=== PATIENT | female | born 1965 | race Caucasian/White ===

== ENCOUNTER 2018-09-06 12:34 | Emergency (ER) | payer MEDICAID ==
[~2018-09-06] VITALS: Ht 167.6 cm; Wt 72.7 kg
[~2018-09-06 12:34] MED LIST: 00186-0372-20 IH; AMBIEN 10MG10 MG PO; ASPIRIN 32325 MG/TAB PO; ATROVENT INHALE14 GM IH; BENTYL 20MG20 MG/TAB PO; CARAFATE 1GM1 G PO; CATAPRES-TTS 10.1 M1 PO; FIORICET 325 MG1 TA1 PO; IBU600 MG PO; LASIX 40MG TABL40 MG PO; LIORESAL 1010 MG/TAB PO; PRAVACHOL 40MG40 MG PO; PREDNISONE20 MG PO; ROXICODONE 55 MG/TAB PO; RT SPIRIVA18 MCG IH; ULTRAM 50MG TAB50 MG PO; VALIUM 5MG T5 MG/TAB PO; VENTOLIN0.09 MG IH; ZANTAC 300300 MG PO; ZESTRIL 20MG TA20 MG PO; ZITHROMAX 250M250 MG PO
[2018-09-06 12:46] VITALS: TEMP 98.1
[2018-09-06] MEDS ORDERED: BREO ELLIPTA 21 EACH IH ×2 (13:02→16:18)
[2018-09-06] MEDS ORDERED: COUMADIN 77.5 MG/TAB PO (13:05)
[2018-09-06 13:41] LABS: BASO # 0.1 (0.0-0.2); BASO % 0.9 % (0.0-2.0); EOS # 0.3 (0.0-0.7); EOS % 3.6 % (0-4.0); GRAN # 3.5 (1.4-6.5); GRAN % 44.5 % (42.2-75.2); HEMATOCRIT 48.1 % (37.0-47.0); LYMPH # 3.4 (1.2-3.4); LYMPH % 43.3 % (20.0-51.0); MEAN CELL VOLUME 87 fl (80.0-100.0); MEAN CORPUSCULAR HEMOGLOBIN 29 pg (27.0-31.0); MEAN CORPUSCULAR HGB CONC 33 g/dl (33.0-37.0); MEAN PLATELET VOLUME 9.3 fl (7.4-10.4); MONO # 0.6 (0.1-0.6); MONO % 7.6 % (1.7-9.3); PLATELET COUNT 252 K/mm3 (130-400); RED BLOOD COUNT 5.55 M/mm3 (4.10-5.30); REDCELL DISTRIBUTION WIDTH-CV 14.8 % (11.5-14.5)
[2018-09-06 13:50] LABS: ALANINE AMINOTRANSFERASE 14 U/L (9-52); ALBUMIN 4.4 gm/dL (3.5-5.0); ALKALINE PHOSPHATASE 89 U/L (50-136); ANION GAP 9 mmol/L (7-16); AST,SGOT 23 U/L (15-37); BILIRUBIN,TOTAL 0.8 mg/dL (0.0-1.0); BLOOD UREA NITROGEN 13 mg/dL (7-17); CALCIUM 9.5 mg/dL (8.4-10.2); CARBON DIOXIDE 25 mmol/L (22-30); CHLORIDE 107 mmol/L (98-107); CREATININE, serum 0.55 (0.52-1.25); GLUCOSE 95 mg/dL (74-106); LIPASE 190 U/L (23-300); POTASSIUM 4.3 mmol/L (3.4-5.0); SODIUM 142 mmol/L (137-145); TOTAL PROTEIN 8.1 gm/dL (6.4-8.2)
[2018-09-06 13:51] LABS: C-REACTIVE PROTEIN < 0.5 mg/dL (0.0-0.9)
[2018-09-06 14:18] LABS: COLLECTION METHOD CLEAN CATCH
[2018-09-06 14:39] LABS: PH 6 (5-8); SQUAMOUS EPITHELIAL None Seen /hpf; URINE APPEARANCE Clear; URINE BACTERIA None Seen /hpf; URINE BILIRUBIN Negative (NEGATIVE); URINE BLOOD Negative (NEGATIVE); URINE COLOR Yellow; URINE GLUCOSE Negative (NEGATIVE); URINE KETONE Negative (NEGATIVE); URINE LEUKOCYTE ESTERASE Negative (NEGATIVE); URINE NITRATE Negative (NEGATIVE); URINE PROTEIN(semi-quant) Negative (NEGATIVE); URINE RBC 0-2 /hpf; URINE UROBILINOGEN Negative (NEGATIVE)
[2018-09-06] MEDS ORDERED: ULTRAM 50MG TAB50 MG PO (16:16)
[2018-09-06] MEDS ORDERED: VENTOLIN0.09 MG IH (16:18)
[2018-09-06] MEDS ORDERED: RT SPIRIVA18 MCG IH (16:18)
[2018-09-06] MEDS ORDERED: PRINIVIL20 MG PO (16:18)
[2018-09-06 16:30] VITALS: BP 160/117; PULSE 83
== END 2018-09-06 16:32 | disposition home or self-care (01) ==
LOC: COL.ER 12:34
PROVIDERS: Emergency Medicine
DX: R10.11 Right upper quadrant pain (principal); I10 Essential (primary) hypertension; J44.9 Chronic obstructive pulmonary disease, unspecified; F17.210 Nicotine dependence, cigarettes, uncomplicated; Z95.2 Presence of prosthetic heart valve; Z90.49 Acquired absence of other specified parts of digestive tract; Z79.82 Long term (current) use of aspirin; Z79.01 Long term (current) use of anticoagulants; Z98.890 Other specified postprocedural states
CPT/HCPCS: C9113; J2405; Q9967

== ENCOUNTER → 2018-10-08 | Outpatient (CLI) | payer MEDICAID ==
[~2018-10-08] MED LIST changes: +BREO ELLIPTA 21 EACH IH; +COUMADIN 77.5 MG/TAB PO; +PRINIVIL20 MG PO
== END ==
LOC: COL.RAD 13:36
DX: M48.02 Spinal stenosis, cervical region (principal); M51.36 Other intervertebral disc degeneration, lumbar region; M48.07 Spinal stenosis, lumbosacral region

== ENCOUNTER → 2018-11-02 | Outpatient (CLI) | payer MEDICAID ==
[~2018-11-02] MED LIST changes: +CATAPRES 0.1MG0.1 MG PO; +CATAPRES0.2 MG PO; +COUMADIN 1010 MG/TAB PO; +DOXYCYCLINE 10100 MG PO
[2018-11-02 13:39] LABS: BASO # 0.1 (0.0-0.2); BASO % 0.8 % (0.0-2.0); EOS # 0.3 (0.0-0.7); EOS % 3.2 % (0-4.0); GRAN # 5.3 (1.4-6.5); GRAN % 50.9 % (42.2-75.2); LYMPH # 4.1 (1.2-3.4); LYMPH % 39.5 % (20.0-51.0); MEAN CELL VOLUME 87 fl (80.0-100.0); MEAN CORPUSCULAR HGB CONC 33 g/dl (33.0-37.0); MEAN PLATELET VOLUME 9.1 fl (7.4-10.4); MONO # 0.6 (0.1-0.6); MONO % 5.3 % (1.7-9.3); PLATELET COUNT 237 K/mm3 (130-400); RED BLOOD COUNT 6.27 M/mm3 (4.10-5.30); REDCELL DISTRIBUTION WIDTH-CV 14.1 % (11.5-14.5)
[2018-11-02 13:41] LABS: HEMATOCRIT 54.8 % (37.0-47.0); HEMOGLOBIN 18.2 g/dl (12.5-16.0); MEAN CORPUSCULAR HEMOGLOBIN 29 pg (27.0-31.0)
[2018-11-02 13:50] LABS: ALANINE AMINOTRANSFERASE 15 U/L (9-52); ALKALINE PHOSPHATASE 95 U/L (50-136); ANION GAP 12 mmol/L (7-16); AST,SGOT 29 U/L (15-37); BLOOD UREA NITROGEN 13 mg/dL (7-17); C-REACTIVE PROTEIN < 0.5 mg/dL (0.0-0.9); CALCIUM 10.1 mg/dL (8.4-10.2); CARBON DIOXIDE 26 mmol/L (22-30); CHLORIDE 103 mmol/L (98-107); CREATININE, serum 0.77 (0.52-1.25); GLUCOSE 95 mg/dL (74-106); POTASSIUM 4.6 mmol/L (3.4-5.0); SODIUM 140 mmol/L (137-145); TOTAL PROTEIN 8.8 gm/dL (6.4-8.2)
[2018-11-02 14:15] LABS: ERYTHROCYTE SEDIMENTATION RATE 1 mm/hr (0-30)
[2018-11-02 14:36] LABS: HIV 1/2 Antibodies Non-Reactive; HIV-1p24 Antigen Non-Reactive
[2018-11-03 01:49] LABS: HEPATITIS B SURFACE ANTIGEN Negative (Negative)
[2018-11-03 06:19] LABS: HEPATITIS C VIRUS ANTIBODY Reactive (Negative)
[2018-11-05 10:48] LABS: LIVER FIBROSIS APOLIPOPROTEIN 159 mg/dL (>=140)
== END ==
LOC: COL.LAB 12:42
PROVIDERS: Internal Medicine Infectious Disease
DX: B19.20 Unspecified viral hepatitis C without hepatic coma (principal)
CPT/HCPCS: 87522

== ENCOUNTER → 2019-03-30 | Outpatient (CLI) | payer MEDICAID | LOC: MHCPAIN 08:21 | DX: M47.817 Spondylosis without myelopathy or radiculopathy, lumbosacral region (principal); M53.3 Sacrococcygeal disorders, not elsewhere classified | CPT/HCPCS: G0463 ==

== ENCOUNTER 2019-10-29 20:41 | Emergency (ER) | payer MEDICAID ==
[~2019-10-29] VITALS: Ht 175.3 cm; Wt 75.0 kg
[2019-10-29] MEDS ORDERED: OXAYDO7.5 MG PO (21:40)
[2019-10-29 21:47] LABS: BASO # 0.1 (0.0-0.2); BASO % 0.5 % (0.0-2.0); EOS # 0.1 (0.0-0.7); EOS % 0.4 % (0-4.0); GRAN # 12.4 (1.4-6.5); GRAN % 75.1 % (42.2-75.2); HEMATOCRIT 43.9 % (37.0-47.0); HEMOGLOBIN 14.9 g/dl (12.5-16.0); LYMPH # 2.7 (1.2-3.4); LYMPH % 16.1 % (20.0-51.0); MEAN CELL VOLUME 84 fl (80.0-100.0); MEAN CORPUSCULAR HEMOGLOBIN 29 pg (27.0-31.0); MEAN CORPUSCULAR HGB CONC 34 g/dl (33.0-37.0); MEAN PLATELET VOLUME 8.7 fl (7.4-10.4); MONO # 1.2 (0.1-0.6); MONO % 7.4 % (1.7-9.3); PLATELET COUNT 244 K/mm3 (130-400); REDCELL DISTRIBUTION WIDTH-CV 13.8 % (11.5-14.5)
[2019-10-29 21:56] LABS: COLLECTION METHOD CLEAN CATCH
[2019-10-29 22:00] LABS: ALANINE AMINOTRANSFERASE 19 U/L (4-34); ALBUMIN 4.4 gm/dL (3.5-5.0); ALKALINE PHOSPHATASE 87 U/L (50-136); ANION GAP 8 mmol/L (7-16); AST,SGOT 27 U/L (15-37); BILIRUBIN,TOTAL 1.3 mg/dL (0.0-1.0); BLOOD UREA NITROGEN 9 mg/dL (7-17); CALCIUM 9.2 mg/dL (8.4-10.2); CARBON DIOXIDE 24 mmol/L (22-30); CHLORIDE 100 mmol/L (98-107); CREATININE, serum 0.71 (0.52-1.25); GLUCOSE 133 mg/dL (74-106); POTASSIUM 4.1 mmol/L (3.4-5.0); SODIUM 133 mmol/L (137-145); TOTAL PROTEIN 8.1 gm/dL (6.4-8.2)
[2019-10-29 22:09] LABS: STREP SCREEN NEGATIVE
[2019-10-29 22:11] LABS: PH 5 (5-8); SQUAMOUS EPITHELIAL 0-2 /hpf; URINE APPEARANCE Hazy; URINE BACTERIA Rare /hpf; URINE BILIRUBIN Negative (NEGATIVE); URINE BLOOD 1+ (NEGATIVE); URINE COLOR Yellow; URINE GLUCOSE Negative (NEGATIVE); URINE KETONE Trace (NEGATIVE); URINE LEUKOCYTE ESTERASE 1+ (NEGATIVE); URINE NITRATE Negative (NEGATIVE); URINE PROTEIN(semi-quant) Negative (NEGATIVE); URINE UROBILINOGEN Negative (NEGATIVE)
[2019-10-29] MEDS ORDERED: CATAPRES0.2 MG PO (22:14)
[2019-10-29 22:35] LABS: PROTHROMBIN TIME 60.5 SECONDS (9.7-12.8)
[2019-10-29 22:36] LABS: INR 5.3 (0.8-3.0)
[2019-10-29 22:55] LABS: TROPONIN-I < 0.012 ng/mL (0.000-0.035)
[2019-10-29] MEDS ORDERED: AMOXICILLIN 8751 TAB PO (23:44)
[2019-10-30 01:30] VITALS: BP 130/70; PULSE 66; TEMP 98
== END 2019-10-30 00:15 | disposition home or self-care (01) ==
LOC: COL.ER 20:41
PROVIDERS: Emergency Medicine
DX: J06.9 Acute upper respiratory infection, unspecified (principal); N39.0 Urinary tract infection, site not specified; R11.2 Nausea with vomiting, unspecified; I48.91 Unspecified atrial fibrillation; I25.10 Atherosclerotic heart disease of native coronary artery without angina pectoris; I50.9 Heart failure, unspecified; Z95.1 Presence of aortocoronary bypass graft; Z95.4 Presence of other heart-valve replacement; Z79.01 Long term (current) use of anticoagulants; Z87.891 Personal history of nicotine dependence; Z20.828 Contact with and (suspected) exposure to other viral communicable diseases
CPT/HCPCS: J0696; J1885; Q9967

== ENCOUNTER 2019-11-03 19:25 | Inpatient (IN) | payer MEDICAID ==
[~2019-11-03] VITALS: Ht 167.6 cm; Wt 81.5 kg
[~2019-11-03 19:25] MED LIST changes: +AMOXICILLIN 8751 TAB PO; +OXAYDO7.5 MG PO
[2019-11-03 20:33] LABS: BASO # 0.1 (0.0-0.2); BASO % 0.6 % (0.0-2.0); EOS # 0.2 (0.0-0.7); EOS % 1.8 % (0-4.0); GRAN % 65.6 % (42.2-75.2); HEMATOCRIT 43.4 % (37.0-47.0); HEMOGLOBIN 14.2 g/dl (12.5-16.0); LYMPH # 3.1 (1.2-3.4); LYMPH % 25.3 % (20.0-51.0); MEAN CELL VOLUME 85 fl (80.0-100.0); MEAN CORPUSCULAR HEMOGLOBIN 28 pg (27.0-31.0); MEAN CORPUSCULAR HGB CONC 33 g/dl (33.0-37.0); MEAN PLATELET VOLUME 8.5 fl (7.4-10.4); MONO # 0.8 (0.1-0.6); MONO % 6.2 % (1.7-9.3); PLATELET COUNT 326 K/mm3 (130-400); RED BLOOD COUNT 5.12 M/mm3 (4.10-5.30)
[2019-11-03 20:49] LABS: ALANINE AMINOTRANSFERASE 16 U/L (4-34); ALBUMIN 4.3 gm/dL (3.5-5.0); ALKALINE PHOSPHATASE 79 U/L (50-136); ANION GAP 10 mmol/L (7-16); AST,SGOT 34 U/L (15-37); BILIRUBIN,TOTAL 0.8 mg/dL (0.0-1.0); BLOOD UREA NITROGEN 14 mg/dL (7-17); CALCIUM 9.5 mg/dL (8.4-10.2); CARBON DIOXIDE 22 mmol/L (22-30); CHLORIDE 103 mmol/L (98-107); CREATINE KINASE 116 U/L (30-135); CREATININE, serum 0.64 (0.52-1.25); GLUCOSE 101 mg/dL (74-106); POTASSIUM 4.6 mmol/L (3.4-5.0); SODIUM 135 mmol/L (137-145); TOTAL PROTEIN 8.1 gm/dL (6.4-8.2)
[2019-11-03 20:59] LABS: TROPONIN-I < 0.012 ng/mL (0.000-0.035)
[2019-11-03 21:14] LABS: INR 1.1 (0.8-3.0); PROTHROMBIN TIME 12.2 SECONDS (9.7-12.8)
[2019-11-03] MEDS ORDERED: ZANAFLEX CAPSULE4 MG PO (23:10)
[2019-11-03] MEDS ORDERED: NORVASC 10MG10 MG PO (23:10)
[2019-11-03] MEDS ORDERED: DESYREL DIVIDO150 M1 PO (23:11)
[2019-11-03] MEDS ORDERED: RT SPIRIVA18 MCG IH (23:11)
[2019-11-03] MEDS ORDERED: CYMBALTA 60MG60 MG PO (23:12)
[2019-11-03] MEDS ORDERED: BREO ELLIPTA 21 EACH IH (23:13)
[2019-11-03] MEDS ORDERED: LIORESAL 1010 MG/TAB PO (23:15)
[2019-11-03] MEDS ORDERED: ROXICODONE 55 MG/TAB PO (23:17)
[2019-11-03] MEDS ORDERED: TOPROL XL 50MG50 MG PO (23:19)
[2019-11-03] MEDS ORDERED: PROAIR HFA0.09 MG/AC IH (23:19)
[2019-11-03] MEDS ORDERED: PEPCID 20MG TAB20 MG PO (23:19)
[2019-11-04] VITALS (7 sets, daily range): BP systolic 95–144; BP diastolic 48–82; PULSE 53–73; TEMP 97.7–98.7
--- NOTE | 2019-11-04 00:48 | NUR ---
Vancomycin Initial Dosing Pharmacy Note Ordering provider: Heber Dobbins MD Indication/duration: HAP/VAP - MRSA risk w/ 7 day duration Relevant comorbidities: LABS: WBC = 12.2, SCr = 0.64 Recommendation: Will order lab and follow results. Loading dose: 1.5 grams Maintenance dose: 1 gram every 8 hours Trough goal: 15-20 ug/mL
--- NOTE | 2019-11-04 03:00 | NUR ---
Patient arrived to medical until from ER at approximately 0200. Alert and oriented x 4, and able to make needs known. INT to right hand flushed. Site is without redness, warmth, swelling, and pain. Reports level 9 pain to back/hips/legs, described as sharp, and chronic. Given scheduled pain medication per orders. Reports SOB with exertion only. LS coarse throughout. Respirations even and unlabored. On room air. Occasional cough, unable to observe any sputum at this time. Patient reports she has been having bloody sputum. supervisor shipping room aware. HRR. Telemetry in place: normal sinus. Capillary refill less than 3 seconds. Non-tenting skin turgor. BSAx4. Abdomen soft and non-tender. No edema. Voices no questions, needs, or concerns at this time. IV antibiotics per orders. Rresting in bed with call light within reach.
--- NOTE | 2019-11-04 05:14 | NUR ---
Patient has been resting in bed. Has denied having any questions, needs, or concerns at this time. Call light is within reach.
[2019-11-04 07:16] LABS: BASO # 0.1 (0.0-0.2); BASO % 0.5 % (0.0-2.0); EOS # 0.2 (0.0-0.7); EOS % 2.2 % (0-4.0); GRAN # 4.9 (1.4-6.5); GRAN % 51.3 % (42.2-75.2); HEMATOCRIT 39.6 % (37.0-47.0); HEMOGLOBIN 13.3 g/dl (12.5-16.0); LYMPH # 3.5 (1.2-3.4); LYMPH % 36.8 % (20.0-51.0); MEAN CELL VOLUME 86 fl (80.0-100.0); MEAN CORPUSCULAR HEMOGLOBIN 29 pg (27.0-31.0); MEAN CORPUSCULAR HGB CONC 34 g/dl (33.0-37.0); MEAN PLATELET VOLUME 8.6 fl (7.4-10.4); MONO # 0.8 (0.1-0.6); MONO % 8.7 % (1.7-9.3); PLATELET COUNT 362 K/mm3 (130-400); RED BLOOD COUNT 4.63 M/mm3 (4.10-5.30); REDCELL DISTRIBUTION WIDTH-CV 14.2 % (11.5-14.5)
--- NOTE | 2019-11-04 07:17 | NUR ---
TX REFUSED AT THIS TIME
[2019-11-04 07:40] LABS: ALBUMIN 3.5 gm/dL (3.5-5.0); BILIRUBIN,TOTAL 0.6 mg/dL (0.0-1.0); CALCIUM 8.9 mg/dL (8.4-10.2); CREATININE, serum 0.68 (0.52-1.25); POTASSIUM 3.6 mmol/L (3.4-5.0); TOTAL PROTEIN 6.7 gm/dL (6.4-8.2)
--- NOTE | 2019-11-04 09:09 | NUR ---
Pt sleeping upon entry, easily awakened, no C/O pain at this time. Shift assessments complete, left Pt call light in reach, bed in lowest position.
--- NOTE | 2019-11-04 18:14 | NUR ---
Pt resting in the room today, has had some C/O pain and medications were given for relief, no other issues / complaints noted. Pt in good spirits and talkative. Vs have remained stable.
--- NOTE | 2019-11-04 20:00 | NUR ---
Assessment complete at this time. Patient complains of pain 7/10 all over her body; scheduled Roxycodone administered. Antibiotics currently running into a right hand IV. No new concerns, will continue to monitor.
[2019-11-05 03:31] VITALS: BP 116/62; PULSE 67; TEMP 98.4
--- NOTE | 2019-11-05 03:56 | NUR ---
Patient complains of pain below her ribs on her right side at this time; 10/23. Additional 7.5 mg of Roxicodone is ordered and administered. Will continue to monitor.
[2019-11-05 07:16] VITALS: BP 137/76; PULSE 65; TEMP 98.1
--- NOTE | 2019-11-05 09:15 | NUR ---
Pt awake and alert this morning, C/O pain 5/10, medications given for relief. [facility] assessments complete, left Pt call light in reach, bed in lowest position.
--- NOTE | 2019-11-05 10:50 | NUR ---
SW met with patient to complete intake. Patient states that she lives in [place] with her daughter Shelley Carbone [phone]. Patient states that she utilizes a cane every now and then. Patient states that she is independent with ADL's. Patient provides that her PCP is Dr. Leslye Kerns, she obtains her medications from [facility] and that she is able to afford her medications at this time. Patient states that she would like to appoint her daughter Shelley Carbone as her DPOA-HC. Document reviewed, filled out by JOSHUA and signed by patient with nurse Leblanc being the witness of the signature. Patient states that she is unsure when she will discharge to her home, but she has not concerns at this time in regards to her discharge and does not feel she will need any services upon discharge. SW will continue to follow.
[2019-11-05 11:20] VITALS: BP 128/77; PULSE 59; TEMP 98.1
[2019-11-05] MEDS ORDERED: PREDNISONE20 MG PO (12:41)
[2019-11-05] MEDS ORDERED: OMNICEF 300MG300 MG PO (12:41)
--- NOTE | 2019-11-05 13:30 | NUR ---
Pt discharged to home, discussed discharge packet with Pt, escorted Pt to entrance, Pt left with friend via private auto.
== END 2019-11-05 13:30 | disposition home or self-care (01) | DRG 194 ==
LOC: COL.ER 19:25 → MEDICAL 22:36
PROVIDERS: Emergency Medicine; Nurse Practitioner Family; ADMIT Internal Medicine
DX: J18.9 Pneumonia, unspecified organism (principal); R04.2 Hemoptysis; I11.0 Hypertensive heart disease with heart failure; I50.9 Heart failure, unspecified; E78.5 Hyperlipidemia, unspecified; I25.10 Atherosclerotic heart disease of native coronary artery without angina pectoris; I71.2 Thoracic aortic aneurysm, without rupture; I48.0 Paroxysmal atrial fibrillation; M48.00 Spinal stenosis, site unspecified; R91.8 Other nonspecific abnormal finding of lung field; J43.9 Emphysema, unspecified; I34.1 Nonrheumatic mitral (valve) prolapse; Z95.1 Presence of aortocoronary bypass graft; Z95.3 Presence of xenogenic heart valve; Z86.73 Personal history of transient ischemic attack (TIA), and cerebral infarction without residual deficits; Z79.01 Long term (current) use of anticoagulants; Z88.6 Allergy status to analgesic agent; Z87.891 Personal history of nicotine dependence
CPT/HCPCS: 99223-AI; 99232-AI; 99239; C9113; J1885; J2543; J3370; J7050; J7512; Q9967

== ENCOUNTER → 2019-12-14 | Outpatient (CLI) | payer MEDICAID ==
[~2019-12-14] MED LIST changes: +CYMBALTA 60MG60 MG PO; +DESYREL DIVIDO150 M1 PO; +NORVASC 10MG10 MG PO; +OMNICEF 300MG300 MG PO; +PEPCID 20MG TAB20 MG PO; +PROAIR HFA0.09 MG/AC IH; +TOPROL XL 50MG50 MG PO; +ZANAFLEX CAPSULE4 MG PO
== END ==
LOC: COL.VAS 12-13 13:15
DX: R06.02 Shortness of breath (principal); Z95.2 Presence of prosthetic heart valve

== ENCOUNTER → 2019-12-28 | Outpatient (CLI) | payer MEDICAID ==
[~2019-12-28] VITALS: Ht 167.6 cm; Wt 76.0 kg
[~2019-12-28] MED LIST changes: +CRESTOR; +CRESTOR5 MG PO
[2019-12-28 09:28] VITALS: BP 153/80; PULSE 79
--- NOTE | 2019-12-28 10:40 | NUR ---
Pt procedure canceled by Dr Hawkins after repeat scan and talking with Dr Matt Smyth Pt changed into clothes. Int removed. 2x2 and coban to site, catheter tip intact. Pt given muffin and coffee to eat. Pt awaiting daughter to pick her up.
--- NOTE | 2019-12-28 10:44 | NUR ---
pt out to car per ambulation. Denies complaints at this time.
== END ==
LOC: COL.RAD 09:09
DX: J98.11 Atelectasis (principal); I28.8 Other diseases of pulmonary vessels; J47.9 Bronchiectasis, uncomplicated; R91.8 Other nonspecific abnormal finding of lung field

== ENCOUNTER → 2020-04-30 | Outpatient (CLI) | payer MEDICAID | LOC: COL.RAD 09:35 | DX: J43.9 Emphysema, unspecified (principal); Z98.890 Other specified postprocedural states; Z95.2 Presence of prosthetic heart valve ==

== ENCOUNTER 2021-01-24 15:30 | Inpatient (IN) | payer MEDICAID ==
[~2021-01-24] VITALS: Ht 167.6 cm; Wt 76.0 kg
[2021-01-24] VITALS (32 sets, daily range): BP systolic 94–127; BP diastolic 60–75; PULSE 58–66; TEMP 98–98.5; O2SAT 80–99
--- NOTE | 2021-01-24 15:57 | NUR ---
PT ADMITTED FROM [facility] FOR POSSIBLE NSTEMI. PT IS AXOX4. PT'S VSS. PT ORIENTED TO ROOM AND FLOOR. PT DENIES CP. BEDSIDE AND BEDSIDE. WILL CONTINUE TO [facility].
[2021-01-24] MEDS ORDERED: PRILOSEC 20MG20 MG PO (16:21)
[2021-01-24] MEDS ORDERED: ATARAX50 MG PO (16:25)
--- NOTE | 2021-01-24 17:06 | NUR ---
REPORT GIVEN TO KAMILAH CHAPIN ALL QUESTIONS ANSWERED. PT WHEELED UP TO ROOM 352 BY ESTEFANI CHUNG. KAMILAH CHAPIN NOTIFIED THAT LAB UNABLE TO DRAW. WILL SEND SOMEONE ELSE IN ABOUT 30MINS.
--- NOTE | 2021-01-24 19:02 | NUR ---
Pt. transferred to room 352. Pt. oriented to room, pt. verbalized understanding of call light use. 5L NC in use, O2 sat WNL. Evening medications administered per MAY. Moisture Conditioner Operator and charge nurse were unable to get pt.'s labs. Pt. also reporting 7/10 pain to her left arm. MITUL Mcdowell notified on the telephone regarding pt.'s pain and labs unable to be obtained. MITUL Mcdowell reports she will need to see patient this evening.
--- NOTE | 2021-01-24 21:45 | NUR ---
PT LAYING IN BED, GOT UP TO TAKE MEDICATIONS. PT STATED SHE IS REALLY TIRED AND JUST WANTED TO GET SOME SLEEP. ASSESSMENT COMPLETED, PT STATED NO COMPLAINTS OTHER THAN RIGHT SHOULDER PAIN. LIDOCAINE PATCH PLACED, MEDICATIONS TAKEN. CALL LIGHT IN REACH. NO OTHER NEEDS AT THIS TIME.
--- NOTE | 2021-01-24 23:07 | NUR ---
THIS RN NOTIFIED MITUL JIMENEZ ABOUT PT REFUSAL FOR A SECOND STICK FOR LAB DRAW. TONY SAID TO HAVE TROPONIN LAB ORDERED FOR 0500. LAB IS ALREADY SCHEDULED FOR 0600 IN MORNING. PT REQUEST TO HAVE DIFFERENT COOK RESTAURANT ATTEMPT TO DRAW BLOOD IN MORNING, DID NOT WANT MOST RECENT TECH TO DRAW BLOOD AGAIN DUE TO MULTIPLE ATTEMPTS BECAUSE OF DIFFICULTY GAINING ACCESS.
[2021-01-25] VITALS (10 sets, daily range): BP systolic 111–183; BP diastolic 61–95; PULSE 64–92; TEMP 97.7–98.6
--- NOTE | 2021-01-25 05:57 | NUR ---
BETWEEN CHECKS, PT REMOVED OXYGEN, COMPLAINED OF SOB, STATED THAT "SHE COULDN'T BREATHE BECAUSE OF IV FLUIDS RUNNING." TAVARES PERALTA REPLACED OXYGEN, STATED BREATHING WAS MORE RELATED TO OXYGEN BEING REMOVED. PT STATED "SHE DID NOT WANT THE FLUIDS TO RUN ANYMORE." TAVARES PERALTA STOPPED IV FLUIDS RUNNING AT 0550. WILL PASS MESSAGE TO DAY SHIFT, GIVE PATIENT TIME WITH NO FLUIDS, AND OXYGEN AND TO TRY FLUID AGAIN.
--- NOTE | 2021-01-25 06:09 | NUR ---
PT SLEPT MOST OF NIGHT, COMPLAINED OF BEING REALLY TIRED. PT STATED SHE NEEDED THE FLUIDS TO STOP BECAUSE IT WAS MAKING IT HARD FOR HER TO BREATH. OXYGEN HAD TO BE REPLACED AROUND 0550.SPO2 WAS FOUND TO BE AT 94% WHEN MEASURED. FLUIDS STOPPED AT THE TIME TO GIVE PT A BREAK. PT REFUSED BLOOD DRAW LAST NIGHT DUE TO FIRST STICK NOT BEING SUCCESSFUL, MITUL SANABRIA WITH BLOOD IN AM, WELL CHEST XRAY. PT TOOK ALL MEDICATIONS PRESCRIBED. CALL LIGHT IN REACH, PT REMINDED OF NPO STATUS DUE TO HEART TESTS, NO OTHER NEEDS AT THIS TIME. WILL CONTINUE TO MONITOR TO MAKE SURE PT KEEPS OXYGEN ON TO PREVENT FURTHER HYPOXEMIA.
[2021-01-25 06:21] LABS: HEMATOCRIT 44.8 % (37.0-47.0); HEMOGLOBIN 14.6 g/dl (12.5-16.0); MEAN CELL VOLUME 87 fl (80.0-100.0); MEAN CORPUSCULAR HEMOGLOBIN 29 pg (27.0-31.0); MEAN CORPUSCULAR HGB CONC 33 g/dl (33.0-37.0); MEAN PLATELET VOLUME 9.3 fl (7.4-10.4); PLATELET COUNT 170 K/mm3 (130-400); RED BLOOD COUNT 5.13 M/mm3 (4.10-5.30); REDCELL DISTRIBUTION WIDTH-CV 15.9 % (11.5-14.5)
[2021-01-25 07:02] LABS: CALCIUM 9.1 mg/dL (8.4-10.2); CREATININE, serum 0.76 mg/dL (0.57-1.11); MAGNESIUM 1.7 mg/dL (1.6-2.6)
[2021-01-25 07:50] LABS: ANISOCYTOSIS 1+; BAND 1 % (0-10); HYPOCHROMIA 1+; LYMPHOCYTE 14 % (20.0-51.0); NEUTROPHILS 83 % (42.0-75.2); PLATELET ESTIMATE NORMAL (NORMAL)
[2021-01-25 07:51] LABS: SCHISTOCYTES 1+
--- NOTE | 2021-01-25 10:42 | NUR ---
PT ALERT AND ORIENTED, RETURNED FROM STRESS TEST. PT REPORTS COUGH, CAUSING BACK SPASMS RATED 10/10. MITUL BARTHOLOMEW NOTIFIED FOR PAIN MANAGEMENT. PT HAS DIMINISHED LUNG SOUNDS AUSCULTATED IN ALL LOBES, EXPIRATORY WHEEZES NOTED IN BASES BILATERALLY. PT HAS ACTIVE BOWEL SOUNDS, SOFT, NON-TENDER. PT PULSES 2+ IN ALL EXTREMITIES. PT CALL LIGHT WITHIN REACH.
--- NOTE | 2021-01-25 12:11 | NUR ---
NOTIFIED MITUL BARTHOLOMEW OF PT BLOOD PRESSURE ELEVATED AND TREND HAS INCREASED.
[2021-01-25 13:46] LABS: ARTERIAL BLD GAS O2 SATURATION 97.9 % (92-100); ARTERIAL BLD GAS TCO2 CT 25.4; ARTERIAL BLOOD GAS BASE EXCESS -0.9 (-2-2); ARTERIAL BLOOD GAS HCO3 24.1 meq/L (22-26); ARTERIAL BLOOD GAS PCO2 41.4 mmHg (35-45); ARTERIAL BLOOD GAS PO2 96.2 mmHg (80-100); ARTERIAL BLOOD GAS pH 7.38 (7.35-7.45)
--- NOTE | 2021-01-25 14:50 | NUR ---
Pt daughter called for update in AM. No security code available. Call back number given matches person of contact Shelley, ([phone]). Once pt returned to room, verbal consent received to update daughter. Called back and this time, left voicemail for return call.
--- NOTE | 2021-01-25 17:34 | NUR ---
Pt continuing on plan of care. Pt virus panel collected, placed on contact/droplet precautions. Pt pain managed with prn medication per orders. Pt blood pressure managed with medications per orders. Pt able to ambulate independently in room. Pt rested this shift. Pt call light within reach.
[2021-01-26 03:48] VITALS: BP 117/61; PULSE 57; TEMP 97.8
--- NOTE | 2021-01-26 05:20 | NUR ---
PT HAD UNEVENTFUL NIGHT, 02 REMAINS 5L NC, CONTACT/DROPLET PRECAUTIONS REMAIN IN PLACE.
[2021-01-26 07:09] LABS: BASO % 0.1 % (0.0-2.0); GRAN # 8.4 K/mm3 (1.4-6.5); GRAN % 83.3 % (42.2-75.2); HEMATOCRIT 42.9 % (37.0-47.0); HEMOGLOBIN 13.7 g/dl (12.5-16.0); LYMPH # 1.2 K/mm3 (1.2-3.4); LYMPH % 12.1 % (20.0-51.0); MEAN CELL VOLUME 89 fl (80.0-100.0); MEAN CORPUSCULAR HEMOGLOBIN 28 pg (27.0-31.0); MEAN CORPUSCULAR HGB CONC 32 g/dl (33.0-37.0); MEAN PLATELET VOLUME 9.4 fl (7.4-10.4); MONO # 0.4 K/mm3 (0.1-0.6); PLATELET COUNT 181 K/mm3 (130-400); RED BLOOD COUNT 4.84 M/mm3 (4.10-5.30); REDCELL DISTRIBUTION WIDTH-CV 16.2 % (11.5-14.5)
[2021-01-26 07:18] LABS: CALCIUM 9.5 mg/dL (8.4-10.2); CREATININE, serum 0.72 mg/dL (0.57-1.11); POTASSIUM 4.4 mmol/L (3.5-4.5)
[2021-01-26 08:11] VITALS: BP 121/74; PULSE 58; TEMP 98.5
[2021-01-26 11:18] VITALS: BP 128/61; PULSE 59; TEMP 98.1
[2021-01-26] MEDS ORDERED: ASPIRIN 81M81 MG/TA2 PO (11:51)
[2021-01-26] MEDS ORDERED: MONODOX100 PO (11:51)
[2021-01-26] MEDS ORDERED: PREDNISONE20 MG PO (11:53)
[2021-01-26 12:30] VITALS: BP 135/76; PULSE 64; TEMP 97.8
--- NOTE | 2021-01-26 14:07 | NUR ---
ORDERS RECEIVED FOR PT TO D/C HOME PT NORMALY USES 4-5 LITERS OF OXYGEN PER PT REPOR,PT ASKED BY THIS NURSE IF HE BROUGHT HIS OWN OXYGEN BUT STATED SHE DIDN'NT BRING IT AND SHE WON'T SEND HER DAUGHTER HOME TO BRING OXYGEN CYLINDER. SKIN CARE INSTRUCTOR NOTIFIED. PT DEMANDED TO LEAVE WITHOUT OXYGEN, RISK AND BENEFITS EXPLAINED OF LEAVING WITHOUT OXGYGEN EXPLAINED TO PATIENT PT VERBERLIZED UNDERSTANDING. PT LEFT VIA WC EXCORTED BY DAIUGHTER, DECLINED TO BE ESCORTED BY THIS NURSE
--- NOTE | 2021-01-26 14:17 | NUR ---
PP DISCHARGED HOME ON STABLE CONDITION,D/C INSTRUCTIONS REVEIWED WITH PT QUESTIONS AND CONCERNS ADDRESSED
--- NOTE | 2021-01-26 14:34 | NUR ---
SW met with patient to complete intake. Patient states that she lives in [place] with her sister Shelley [phone]. Patient states that she does not utilize DME, independent with ADL and does not utilize any Home Health Services. Patient provides that her PCP is at [facility], pharmacy is [facility] in [place], and is able to afford her medications. Patient states that she does not have a DPOA nor wishes to appoint anyone at this time. Patient provides that her plan is to return home upon DC and has no concerns with doing so. SW will continue to follow. DC Plan: Home with daughter
== END 2021-01-26 13:30 | disposition home or self-care (01) | DRG 189 ==
LOC: IMCU 16:18 → MEDICAL 16:19 → ICU 16:19 → MEDICAL 19:01
PROVIDERS: Internal Medicine Pulmonary Disease; Physician Assistant; ADMIT Internal Medicine
DX: J96.21 Acute and chronic respiratory failure with hypoxia (principal); I21.A1 Myocardial infarction type 2; N17.9 Acute kidney failure, unspecified; I50.32 Chronic diastolic (congestive) heart failure; J44.1 Chronic obstructive pulmonary disease with (acute) exacerbation; J44.0 Chronic obstructive pulmonary disease with (acute) lower respiratory infection; G93.40 Encephalopathy, unspecified; E78.5 Hyperlipidemia, unspecified; I25.10 Atherosclerotic heart disease of native coronary artery without angina pectoris; I48.0 Paroxysmal atrial fibrillation; I11.0 Hypertensive heart disease with heart failure; K21.9 Gastro-esophageal reflux disease without esophagitis; J20.8 Acute bronchitis due to other specified organisms; B97.4 Respiratory syncytial virus as the cause of diseases classified elsewhere; G89.29 Other chronic pain; Z86.73 Personal history of transient ischemic attack (TIA), and cerebral infarction without residual deficits; Z95.1 Presence of aortocoronary bypass graft; Z95.2 Presence of prosthetic heart valve; Z87.891 Personal history of nicotine dependence; Z91.19 Patient's noncompliance with other medical treatment and regimen
CPT/HCPCS: 99223-AI; 99232-AI; 99239; A9500; J1644; J2785; J2920; J7030